=== PATIENT | male | born 1965 | race Caucasian/White ===

== ENCOUNTER → 2020-12-25 14:14 | Outpatient (CLI) | payer OTHER, SELFPAY ==
--- NOTE | 2020-12-25 14:19 | CT_ITS ---
PROCEDURE: CT KNEE RT WO CON CLINICAL HISTORY: POSTERIOR RT KNEE PAIN Medial, lateral, and posterior rt knee pain S/p fall COMPARISON: No exams were available for comparison TECHNIQUE: Axial images obtained with sagittal and coronal reformats. All CT scans at the facility use one or more dose reduction, viz: automated exposure control, ma/kV adjustment per patient size (including targeted exams where dose is matched to indication, i.e. head), or iterative reconstruction technique. FINDINGS: No acute fracture or dislocation is evident. There are mild tricompartmental osteoarthritic changes. Subchondral cystic changes are present in the proximal tibia at the interspinous region and medial tibial plateau. The no soft tissue mass or significant knee joint effusion apparent. No evidence of Anglin cyst. No evidence of intra-articular hemarthrosis. IMPRESSION: 1. No acute fracture. 2. Mild osteoarthritic changes of the knee. Dictated by: Len Whitfield MD 12/26/2020 08:27 Len Whitfield MD in [facility] 12/26/2020 08:27
== END ==
PROVIDERS: PCP Internal Medicine Adolescent Medicine; Visit Provider Internal Medicine Adolescent Medicine
DX: M25.561 Pain in right knee (principal)
CPT/HCPCS: 73700